=== PATIENT | female | born 1965 | race Caucasian/White ===

== ENCOUNTER 2021-07-02 08:58 | Outpatient (CLI) | payer OTHER ==
[2021-07-02 21:14] LABS: SARS-CoV-2 PCR by NAA Not Detected (NotDetected)
== END 2021-07-02 08:59 | disposition home or self-care (01) ==
LOC: CSHLAB 08:58
PROVIDERS: ATTEND Surgery
DX: Z20.822 Contact with and (suspected) exposure to COVID-19 (principal)
CPT/HCPCS: U0003; U0005

== ENCOUNTER 2021-07-05 08:35 | Outpatient (CLI) | payer OTHER | END 2021-07-05 08:36 | disposition home or self-care (01) | LOC: CSHRAD 08:35 | PROVIDERS: ATTEND Surgery | DX: R11.2 Nausea with vomiting, unspecified (principal); K95.09 Other complications of gastric band procedure | CPT/HCPCS: 74220 ==

== ENCOUNTER 2024-07-22 14:16 | Outpatient (CLI) | payer OTHER | END 2024-07-22 14:17 | disposition home or self-care (01) | LOC: CSHDTY/OP 14:16 | PROVIDERS: ATTEND Surgery | DX: E66.01 Morbid (severe) obesity due to excess calories (principal) | CPT/HCPCS: 97802 ==